=== PATIENT | male | born 1935 | race Caucasian/White ===

== ENCOUNTER 2024-02-02 13:01 | Emergency (ER) | payer MEDICARE, BC ==
[~2024-02-02] VITALS: Ht 177.8 cm; Wt 95.0 kg
[~2024-02-02 13:01] MED LIST: ASPIRIN 32325 MG/TAB PO; ASPIRIN E.C. 8181 MG PO; COREG12.5 MG PO; COREG3.125 MG PO; LEVOTHYROXINE0.05 MG PO; LISINOPRIL10 MG PO; LISINOPRIL2.5 MG PO; PLAVIX 75MG TAB75 MG PO; SIMVASTATIN80 MG PO; SYNTHROID0.05 MG PO; ZOCOR 20MG20 MG PO
[2024-02-02] MEDS ORDERED: niCARdipine 200 ML IV ONE (13:15)
[2024-02-02 13:16] VITALS: TEMP 97.7
[2024-02-02] MEDS ORDERED: Iohexol 300 - 100 ML VIAL IV ONE (13:27)
[2024-02-02] MEDS ORDERED: NS 100 ML IV SCH (13:27)
[2024-02-02 13:34] LABS: COLLECTION METHOD IN
[2024-02-02 13:34] LABS: BASO % 0.7 % (0.0-2.0); EOS # 0.1 K/mm3 (0.0-0.7); EOS % 2.3 % (0.0-4.0); GRAN # 3.7 K/mm3 (1.4-6.5); GRAN % 65.8 % (42.2-75.2); HEMATOCRIT 46.8 % (42.0-52.0); HEMOGLOBIN 16.2 g/dl (13.5-18.0); LYMPH # 1.1 K/mm3 (1.2-3.4); LYMPH % 19.8 % (20.0-51.0); MEAN CELL VOLUME 90 fl (80.0-100.0); MEAN CORPUSCULAR HEMOGLOBIN 31 pg (27-31); MEAN CORPUSCULAR HGB CONC 35 g/dl (33.0-37.0); MEAN PLATELET VOLUME 11.5 fl (7.4-10.4); MONO # 0.6 K/mm3 (0.1-0.6); MONO % 11.2 % (1.7-9.3); PLATELET COUNT 98 K/mm3 (130-400); REDCELL DISTRIBUTION WIDTH-CV 13.6 % (11.5-14.5)
[2024-02-02 13:38] LABS: INR 1.1 (0.8-3.0); PROTHROMBIN TIME 12.3 SECONDS (9.7-12.8)
[2024-02-02 13:41] LABS: PARTIAL THROMBOPLASTIN TIME 38.1 SECONDS (26.0-37.0)
[2024-02-02 13:46] LABS: PH 6.5 (5.0-8.5); URINE APPEARANCE CLEAR (CLEAR/HAZY); URINE BLOOD TRACE (NEGATIVE); URINE COLOR YELLOW (YELLOW); URINE GLUCOSE NEGATIVE (NEGATIVE); URINE KETONE NEGATIVE (NEGATIVE); URINE NITRATE NEGATIVE (NEGATIVE); URINE PROTEIN(semi-quant) NEGATIVE (NEGATIVE); URINE UROBILINOGEN 0.2 E.U/dL (0.2-1.0)
[2024-02-02 13:46] LABS: ALANINE AMINOTRANSFERASE 19 U/L (0-55); ALBUMIN 3.8 g/dL (3.4-4.8); ALKALINE PHOSPHATASE 72 U/L (40-150); ANION GAP 12 mmol/L (7-16); AST,SGOT 19 U/L (5-34); BILIRUBIN,TOTAL 0.9 mg/dL (0.2-1.2); BLOOD UREA NITROGEN 28 mg/dL (8-26); CALCIUM 9.6 mg/dL (8.4-10.2); CHLORIDE 106 mEq/L (98-107); CREATININE, serum 1.56 mg/dL (0.72-1.25); GLUCOSE 101 mg/dL (70-99); POTASSIUM 4.7 mEq/L (3.5-4.5); SODIUM 139 mEq/L (136-145)
[2024-02-02 13:53] LABS: TROPONIN-I 0.022 ng/mL (0.00-0.033)
[2024-02-02 13:57] LABS: ALCOHOL(ethanol),MEDICAL < 10 mg/dL (0-10)
[2024-02-02 15:05] VITALS: BP 127/78; PULSE 82
== END 2024-02-02 15:06 | disposition short-term general hospital (02) ==
LOC: COL.ER 13:01
PROVIDERS: Emergency Medicine
DX: S06.35AA Traumatic hemorrhage of left cerebrum with loss of consciousness status unknown, initial encounter (principal); S20.211A Contusion of right front wall of thorax, initial encounter; I16.1 Hypertensive emergency; Z79.82 Long term (current) use of aspirin; Z86.73 Personal history of transient ischemic attack (TIA), and cerebral infarction without residual deficits; W18.30XA Fall on same level, unspecified, initial encounter; Y93.54 Activity, bowling
CPT/HCPCS: A4314; J2404; Q9967